=== PATIENT | male | born 1980 | race Caucasian/White ===

== ENCOUNTER 2022-08-13 02:30 | Emergency (ER) | payer MEDICAID ==
[~2022-08-13] VITALS: Ht 160 cm; Wt 76.9 kg
[2022-08-13 02:40] VITALS: BP 153/101
[2022-08-13 03:11] LABS: BASOPHILS % 0.7 % (0.0-2.0); EOSINOPHILS % 7.6 % (0.0-5.0); HEMATOCRIT. 42.7 % (42.0-52.0); LYMPHOCYTES % 17.5 % (20.0-50.0); MEAN CORPUSCULAR HEMOGLOBIN 31.8 pg (28.0-32.0); MEAN CORPUSCULAR VOLUME 90.6 fL (80.0-94.0); MEAN PLATELET VOLUME 9.1 fl (7.4-10.4); NEUTROPHILS % 65.2 % (40.0-76.0); PLATELET 265 x1000/uL (130-400); RED BLOOD CELL COUNT 4.71 mill/uL (4.7-6.1); RED CELL DISTRIBUTION WIDTH 12.4 % (11.6-14.6)
[2022-08-13 03:27] LABS: CLARITY URINE CLEAR (CLEAR); COLOR URINE YELLOW (YELLOW); KETONES URINE TRACE (NEGATIVE); LEUKOCYTE ESTERASE URINE NEGATIVE (NEGATIVE); NITRITE URINE NEGATIVE (NEGATIVE); OCCULT BLOOD URINE NEGATIVE (NEGATIVE); PH URINE 5.5 (4.5-8.0); PROTEIN URINE TRACE (NEGATIVE); SPECIFIC GRAVITY URINE 1.032 (1.005-1.030)
[2022-08-13] MEDS ORDERED: KETOROLAC 30MG/ML VIAL IM ONE (06:15)
[2022-08-13 09:28] LABS: CHLORIDE 104 mEq/L (98-107)
== END 2022-08-13 07:43 | disposition left against medical advice (07) ==
LOC: ER 02:51
DX: Z53.21 Procedure and treatment not carried out due to patient leaving prior to being seen by health care provider (principal); I49.9 Cardiac arrhythmia, unspecified
CPT/HCPCS: 36415; 80053; 81003; 83690; 85025; 93005; 99281; Z7610

== ENCOUNTER 2022-10-30 04:40 | Emergency (ER) | payer MEDICAID ==
[~2022-10-30] VITALS: Ht 160 cm; Wt 68.0 kg
[2022-10-30 04:58] VITALS: BP 128/102; PULSE 69; RESP 18; TEMP 98.4; O2SAT 100
== END 2022-10-30 06:12 | disposition left against medical advice (07) ==
LOC: ER 04:40
DX: Z53.21 Procedure and treatment not carried out due to patient leaving prior to being seen by health care provider (principal)
CPT/HCPCS: 99281